=== PATIENT | male | born 1995 | race Caucasian/White ===

== ENCOUNTER 2018-06-29 14:06 | Emergency (ER) | payer MEDICAID ==
--- NOTE | 2018-06-29 14:12 | ED Physician Documentation ---
History of Present Illness - Stated complaint Stated Complaint: EYE PAIN - History obtained from History obtained from: Patient - History of Present Illness Timing: Other (He has a painful lump on the inferior left eyelid and is much bigger today. He is already on Keflex and topical erythromycin for same.) Review of Systems Constitutional: reports: Reviewed and negative Ears: reports: Reviewed and negative Nose: reports: Reviewed and negative PD PAST MEDICAL HISTORY - Present Medications Home Medications: Ambulatory Orders Medication Instructions Recorded Confirmed Erythromycin Base [Erythromycin 3.5 gm LEFTEYE QID #1 oint...g. 06/28/18 Ophthalmic Ointment] cephALEXin [Cephalexin] 500 mg PO TID #30 tablet 06/28/18 - Allergies Allergies/Adverse Reactions: Allergies Allergy/AdvReac Type Severity Reaction Status Date / Time strawberry Allergy Unknown Verified 06/29/18 14:18 Sulfa (Sulfonamide Allergy Unknown Verified 06/29/18 14:18 Antibiotics) tomato Allergy Unknown Verified 06/29/18 14:18 - Social History Does the pt smoke?: No Smoking Status: Never smoker PD ED PE NORMAL - Vitals Vital signs reviewed: Yes - General General: Alert and oriented X 3, No acute distress - HEENT HEENT: PERRL, EOMI, Other (There is a pointed abscess, that does not really abuts the lid margins I do not think it is a classic stye on the inferolateral left lid.) - Neck Neck: Supple, no meningeal sign, No bony TTP - Neuro Neuro: Alert and oriented X 3, Normal speech - Psych Psych: Normal mood, Normal affect Results - Vitals Vitals: Vital Signs - 24 hr 06/29/18 14:10 Temperature 36.5 C Heart Rate 62 Respiratory 18 Rate Blood Pressure 122/75 O2 Saturation 100 Oxygen O2 Source Room air Procedures - Abscess I&D (location) Left eyelid Preparation: Lidocaine 1% Incision: Incised with scalpel, Purulent drainage, Loculations broken, Culture obtained Other: Pt tolerated well Departure - Departure Disposition: 01 Home, Self Care Clinical Impression: Eyelid abscess Qualifiers: Laterality: left Qualified Code(s): H00.036 - Abscess of eyelid left eye, unspecified eyelid Condition: Good Record reviewed to determine appropriate education?: Yes Instructions: ED Abscess IandD Comments: Return on Sunday after 12 PM for recheck with me and culture review. Sooner if worse.
[2018-06-29] MEDS ORDERED: BUFFERED LIDOCAINE 10 ML SYRINGE ONE (14:15)
[2018-06-29 14:18] VITALS: BP 122/75
== END 2018-06-29 14:44 | disposition home or self-care (01) ==
LOC: ED 14:06
DX: H00.036 Abscess of eyelid left eye, unspecified eyelid (principal)
CPT/HCPCS: 10060; 87070; 87181; 87205; 99282

== ENCOUNTER 2018-07-01 14:40 | Emergency (ER) | payer MEDICAID ==
[2018-07-01 14:55] VITALS: BP 146/81
--- NOTE | 2018-07-01 15:23 | ED Physician Documentation ---
PD HPI OPHTHO - Stated complaint Stated Complaint: EYE IRRITATION/FOLLOW UP - Chief complaint Chief Complaint: Heent - History obtained from History obtained from: Patient - History of Present Illness Timing - onset: Other (I saw him 2 days ago for an abscess on the left eyelid that was incised and drained. He is doing much better. In the interim culture results came back positive for MRSA. No visual deficit or significant pain.) Review of Systems Constitutional: reports: Reviewed and negative Throat: reports: Reviewed and negative Cardiac: reports: Reviewed and negative PD PAST MEDICAL HISTORY - Past Medical History Past Medical History: No - Past Surgical History Past Surgical History: No - Present Medications Home Medications: Ambulatory Orders Medication Instructions Recorded Confirmed Erythromycin Base [Erythromycin 3.5 gm LEFTEYE QID #1 oint...g. 06/28/18 07/01/18 Ophthalmic Ointment] cephALEXin [Cephalexin] 500 mg PO TID #30 tablet 06/28/18 07/01/18 Doxycycline Hyclate 100 mg PO BID #20 capsule 07/01/18 - Allergies Allergies/Adverse Reactions: Allergies Allergy/AdvReac Type Severity Reaction Status Date / Time strawberry Allergy Unknown Verified 06/29/18 14:18 Sulfa (Sulfonamide Allergy Unknown Verified 06/29/18 14:18 Antibiotics) tomato Allergy Unknown Verified 07/01/18 14:54 - Social History Does the pt smoke?: No Smoking Status: Never smoker Does the pt drink ETOH?: Yes Does the pt have substance abuse?: Yes - Immunizations Immunizations are current?: Yes PD ED PE NORMAL - Vitals Vital signs reviewed: Yes - General General: Alert and oriented X 3, No acute distress - HEENT HEENT: Other (There is still some very mild residual redness and swelling to the left lower lateral eyelid, but no fluctuance or drainage. It looks significantly better than it did 48 hours ago.) - Derm Derm: Normal color, Warm and dry - Neuro Neuro: Normal speech Results - Vitals Vitals: Vital Signs - 24 hr 07/01/18 14:53 Temperature 36.6 C Heart Rate 79 Respiratory 20 Rate Blood Pressure 146/81 H O2 Saturation 97 Oxygen O2 Source Room air Departure - Departure Disposition: 01 Home, Self Care Clinical Impression: MRSA (methicillin resistant staph aureus) culture positive Eyelid abscess Qualifiers: Laterality: left Qualified Code(s): H00.036 - Abscess of eyelid left eye, unspecified eyelid Condition: Good Record reviewed to determine appropriate education?: Yes Instructions: ED Skin Infec MRSA Suspect Conf Prescriptions: Doxycycline Hyclate 100 mg PO BID #20 capsule Comments: Your blood pressure was elevated today on check into the emergency department. This does not mean that you have hypertension, it is a common phenomenon to come to the emergency department and have elevated blood pressure. I recommend that you see your primary care physician within the week to have it rechecked when you are feeling better.
== END 2018-07-01 15:30 | disposition home or self-care (01) ==
LOC: ED 14:40
DX: A49.02 Methicillin resistant Staphylococcus aureus infection, unspecified site (principal); H00.036 Abscess of eyelid left eye, unspecified eyelid; R03.0 Elevated blood-pressure reading, without diagnosis of hypertension
CPT/HCPCS: 99283